=== PATIENT | male | born 1970 | race African-American/Black ===

== ENCOUNTER 2018-08-25 20:30 | Emergency (ER) | payer BC ==
[~2018-08-25] VITALS: Ht 185.4 cm; Wt 138.3 kg
[~2018-08-25 20:30] MED LIST: AMOXICILLIN 50500 MG PO; CIPROFLOXACIN500 M1 PO; FLAGYL500 MG PO; FLEXERIL PO; HYDROCODON-ACE1 EAC2 PO; IBUPROFEN 600600 M1 PO; JANUVIA100 MG PO; LEVEMIR SUBQ; NORCO 5-325 TA1 EACH PO; NOVOLOG100 UNIT/1 SUBQ; PERCOCET 5-3251 EACH PO; PREDNISONE 20 M20 MG PO; TYLENOL325 MG PO
[2018-08-25] MEDS ORDERED: MOBIC15 MG PO ×2 (20:36→21:26)
[2018-08-25] MEDS ORDERED: GUAIFEN-CODEINE10 ML PO (21:26)
[2018-08-25 21:53] VITALS: BP 149/87
== END 2018-08-25 21:53 | disposition home or self-care (01) ==
LOC: ER 20:30
DX: J06.9 Acute upper respiratory infection, unspecified (principal); E11.9 Type 2 diabetes mellitus without complications; Z90.89 Acquired absence of other organs; Z79.4 Long term (current) use of insulin

== ENCOUNTER 2019-07-19 08:31 | Emergency (ER) | payer BC ==
[~2019-07-19] VITALS: Ht 185.4 cm; Wt 139.7 kg
[~2019-07-19 08:31] MED LIST changes: +GUAIFEN-CODEINE10 ML PO; -LEVEMIR SUBQ; +LEVEMIR100 UNIT/1 SUBQ; +MOBIC15 MG PO
[2019-07-19] MEDS ORDERED: NORFLEX100 MG PO (09:06)
[2019-07-19] MEDS ORDERED: NAPROSYN500 MG PO (09:06)
[2019-07-19] MEDS ORDERED: OZEMPIC0.25 MG/0. SUBQ (09:09)
[2019-07-19 09:23] VITALS: BP 140/91
== END 2019-07-19 09:24 | disposition home or self-care (01) ==
LOC: ER 08:31
DX: R07.89 Other chest pain (principal); E11.9 Type 2 diabetes mellitus without complications; Z90.49 Acquired absence of other specified parts of digestive tract

== ENCOUNTER 2019-11-22 00:16 | Emergency (ER) | payer BC ==
[~2019-11-22] VITALS: Ht 185.4 cm; Wt 144.7 kg
[~2019-11-22 00:16] MED LIST changes: +NAPROSYN500 MG PO; +NORFLEX100 MG PO; +OZEMPIC0.25 MG/0. SUBQ
[2019-11-22 01:15] VITALS: BP 150/94
[2019-11-22 01:40] LABS: HEMATOCRIT 44.3 % (42.0-52.0); HEMOGLOBIN 14.3 gm/dL (14.0-18.0); MCH 25.5 pg (26.0-34.0); MCHC 32.4 g/dL (28.0-37.0); MCV 78.9 fL (80.0-100.0); RBC 5.61 mil/uL (4.50-6.00); RDW 13.8 % (10.5-14.5); WBC 6.2 thou/uL (4.0-11.0)
[2019-11-22 01:43] LABS: URINE BILIRUBIN NEGATIVE (Negative); URINE BLOOD TRACE (Negative); URINE CLARITY CLEAR; URINE COLOR YELLOW; URINE GLUCOSE-RANDOM* 3+ (Negative); URINE KETONES NEGATIVE (Negative); URINE LEUKOCYTES-REFLEX NEGATIVE (Negative); URINE NITRITE-REFLEX NEGATIVE (Negative); URINE PROTEIN (DIPSTICK) NEGATIVE (Negative); URINE SPECIFIC GRAVITY 1.025 (1.005-1.035); URINE UROBILINOGEN 0.2 E.U./dl (0.2-1.0)
[2019-11-22 01:51] LABS: CALCIUM 8.8 mg/dL (8.5-10.1); CREATININE 0.8 mg/dL (0.7-1.3); POTASSIUM 4.3 mmol/L (3.5-5.1)
[2019-11-22 01:55] LABS: AMP/METHAMP Negative (Negative); BARBITURATES Negative (Negative); BENZODIAZEPINES Negative (Negative); COCAINE Negative (Negative); METHADONE Negative (Negative); OPIATES Negative (Negative); PCP Negative (Negative)
[2019-11-22 01:57] LABS: ALBUMIN 3.8 g/dL (3.4-5.0); MAGNESIUM 1.9 mg/dL (1.8-2.4); PHOSPHORUS 4.1 mg/dL (2.5-4.9); TOTAL BILIRUBIN 0.4 mg/dL (<0.1-1.0); TOTAL PROTEIN 7.9 g/dL (6.4-8.2)
[2019-11-22] MEDS ORDERED: NAPROSYN500 MG PO (02:36)
[2019-11-22] MEDS ORDERED: NORFLEX100 MG PO (02:36)
== END 2019-11-22 03:13 | disposition home or self-care (01) ==
LOC: ER 00:16
PROVIDERS: Emergency Medicine
DX: M79.651 Pain in right thigh (principal); M79.652 Pain in left thigh; M25.551 Pain in right hip; E11.9 Type 2 diabetes mellitus without complications; M10.9 Gout, unspecified; Z90.49 Acquired absence of other specified parts of digestive tract

== ENCOUNTER 2020-07-16 22:49 | Emergency (ER) | payer BC ==
[~2020-07-16] VITALS: Ht 185.4 cm; Wt 140.2 kg
[2020-07-17 00:26] LABS: HEMATOCRIT 38.3 % (42.0-52.0); HEMOGLOBIN 12.5 gm/dL (14.0-18.0); MCH 25.7 pg (26.0-34.0); MCHC 32.7 g/dL (28.0-37.0); MCV 78.7 fL (80.0-100.0); RBC 4.87 mil/uL (4.50-6.00); RDW 13.8 % (10.5-14.5); WBC 4.3 thou/uL (4.0-11.0)
[2020-07-17 00:29] LABS: ANION GAP 10 mmol/L (7-16); BUN 9 mg/dL (7-18); CALCIUM 8.3 mg/dL (8.5-10.1); CHLORIDE 104 mmol/L (98-107); CO2 24 mmol/L (21-32); CREATININE 0.9 mg/dL (0.7-1.3); GLUCOSE 277 mg/dL (74-106); POTASSIUM 3.8 mmol/L (3.5-5.1); SODIUM 138 mmol/L (136-145)
[2020-07-17 00:38] LABS: TROPONIN-I <0.06 ng/mL (<0.06)
[2020-07-17] MEDS ORDERED: DOXYCYCLINE 10100 MG PO (02:33)
[2020-07-17 02:40] VITALS: BP 148/73
--- NOTE | 2020-07-17 07:35 | EKG ---
[facility] [place] [address] ELECTROCARDIOGRAM REPORT Name: CHARMAINE SHELTON Room #: DEP [facility]#: [id number] Admission: 07/16/20 Attend Phys: Discharge: 07/17/20 Date of : 70 Report #: [id number] THIS REPORT FOR: cc: JINA CARABALLO Physician not on staff Michael Ivory MD [facility] ~ THIS REPORT FOR: //name// [facility] ED Test Date: 2020-07-16 Test Time: 23:06:22 Pat Name: CHARMAINE SHELTON Department: Room: Gender: M Continuous [employer] Operator: [facility] : 1970 Requested By: mAauri Alejandro Order Number: [id number] MD: Michael Ivory Measurements Intervals [place] Rate: 99 P: 63 [place]: 159 QRS: -40 QRSD: 93 T: 49 QT: 342 QTc: 439 Interpretive Statements Sinus rhythm RSR' in V1 or V2, probably normal variant Inferior infarct, old Baseline wander in lead(s) II No previous ECG available for comparison Electronically Signed On 07-17-2020 7:34:57 CDT by Michael Ivory [email or web address] <ELECTRONICALLY SIGNED> By: Michael Ivory MD, FACC 07/17/20 0734 05 05 Michael Ivory MD, FACC /EPI
== END 2020-07-17 02:40 | disposition home or self-care (01) ==
LOC: ER 22:49
PROVIDERS: Emergency Medicine
DX: U07.1 COVID-19 (principal); J18.9 Pneumonia, unspecified organism; E11.9 Type 2 diabetes mellitus without complications; M10.9 Gout, unspecified; Z90.89 Acquired absence of other organs; Z79.4 Long term (current) use of insulin; Z79.899 Other long term (current) drug therapy

== ENCOUNTER 2020-07-22 02:11 | Emergency (ER) | payer BC ==
[~2020-07-22] VITALS: Ht 185.4 cm; Wt 140.6 kg
[~2020-07-22 02:11] MED LIST changes: +DOXYCYCLINE 10100 MG PO
[2020-07-22 04:30] VITALS: BP 128/70
--- NOTE | 2020-07-22 11:19 | EKG ---
[facility] [place] [address] ELECTROCARDIOGRAM REPORT Name: CHARMAINE SHELTON Room #: DEP [facility]#: [id number] Admission: 07/22/20 Attend Phys: Discharge: 07/22/20 Date of : 70 Report #: [id number] THIS REPORT FOR: cc: [facility] - Clinic physician unknown [facility] - Clinic physician unknown Jose M Crhistianson MD [facility] THIS REPORT FOR: //name// [facility] ED Test Date: 2020-07-22 Test Time: 02:48:31 Pat Name: CHARMAINE SHELTON Department: Room: Gender: [employer] [facility] 1970 Requested By: Hood Stevenson Order Number: [id number] MD: Jose M Christianson Measurements Intervals [place] Rate: 102 P: 20 [place]: 151 QRS: -48 QRSD: 89 T: 42 QT: 352 QTc: 459 Interpretive Statements Sinus tachycardia Abnormal R-wave progression, late transition Inferior infarct, old Compared to ECG 07/16/2020 23:06:22 No significant change was found Electronically Signed On 07-22-2020 11:19:19 CDT by Jose M Christianson [email or web address] <ELECTRONICALLY SIGNED> By: Jose M Christianson MD, FACC 07/22/20 1119 0248 0248 Jose M Christianson MD, [facility] /EPI
== END 2020-07-22 04:31 | disposition home or self-care (01) ==
LOC: ER 02:11
DX: U07.1 COVID-19 (principal); E11.9 Type 2 diabetes mellitus without complications; M10.9 Gout, unspecified; Z90.89 Acquired absence of other organs; Z79.4 Long term (current) use of insulin; Z79.899 Other long term (current) drug therapy

== ENCOUNTER 2020-12-02 01:45 | Emergency (ER) | payer BC ==
[~2020-12-02] VITALS: Ht 185.4 cm; Wt 137.0 kg
[2020-12-02] MEDS ORDERED: TRAMADOL 50 MG50 MG PO (02:30)
[2020-12-02 02:36] VITALS: BP 143/68
== END 2020-12-02 02:46 | disposition home or self-care (01) ==
LOC: ER 01:45
DX: S29.011A Strain of muscle and tendon of front wall of thorax, initial encounter (principal); E11.9 Type 2 diabetes mellitus without complications; I10 Essential (primary) hypertension; E78.5 Hyperlipidemia, unspecified; M10.9 Gout, unspecified; Z90.89 Acquired absence of other organs; Z79.4 Long term (current) use of insulin; Z79.899 Other long term (current) drug therapy; X50.1XXA Overexertion from prolonged static or awkward postures, initial encounter; Y93.89 Activity, other specified; Y92.89 Other specified places as the place of occurrence of the external cause; Y99.8 Other external cause status